=== PATIENT | female | born 1965 | race Caucasian/White ===

== ENCOUNTER 2017-01-13 00:18 | Emergency (ER) | payer OTHER ==
[2017-01-13] MEDS ORDERED: methylPREDNISolone ACET (DEPO) 80 MG/1 ML VIAL IM ONE (00:45)
[2017-01-13] MEDS ORDERED: KETOROLAC TROMETHAMINE 60 MG/2 ML VIAL IM ONE (00:45)
[2017-01-13 00:46] VITALS: BP 164/98; PULSE 87; TEMP 98.4; BMI 39.9
[2017-01-13] MEDS ORDERED: KETOROLAC TROMETHAMINE 60 MG/2 ML VIAL ONE (01:30)
--- NOTE | 2017-01-13 01:49 | PDOC ---
History of Present Illness <Enrico Sanchez - Last Filed: 01/13/17 01:44> - History of Present Illness Initial Comments: 01/13/17 01:52 Patient is a 51 year old female with significant medical hx of HTN and HLD who is presenting to the ED with shoulder pain for eight weeks. The patient complains of shoulder pain that worsens with neck rotation. She states that it has become so severe over the past several nights that it has been preventing her from sleeping. Patient denies any recent trauma, headache, numbness, tingling, weakness, lightheadedness, chest pain, palpitations, or shortness of breath. Allergies: NKDA Social History: Patient works in [employer] in [place]. She denies tobacco, ETOH and recreational drug use. PMD: Shannon Bellamy MD <Julieta Talavera - Last Filed: 01/13/17 02:00> - General Chief Complaint: Chest Pain Stated Complaint: PAIN,LEFT SHOULDER/NECK Time Seen by Provider: 01/13/17 00:38 Past History - Past Medical History Anemia: No Asthma: No Cancer: No Cardiac Disorders: No CVA: No COPD: No CHF: No Dementia: No Diabetes: No GI Disorders: No Disorders: No HTN: Yes Hypercholesterolemia: Yes Liver Disease: No Seizures: No Thyroid Disease: No - Surgical History Abdominal Surgery: No Appendectomy: No Cardiac Surgery: No Cholecystectomy: Yes Lung Surgery: No Neurologic Surgery: No Orthopedic Surgery: No - Psycho/Social/Smoking Cessation Hx Anxiety: No Suicidal Ideation: No Smoking Status: No Smoking History: Never smoked Have you smoked in the past 12 months: No Number of Cigarettes Smoked Daily: 0 Information on smoking cessation initiated: No Hx Alcohol Use: No Drug/Substance Use Hx: No Hx Substance Use Treatment: No <Enrico Sanchez - Last Filed: 01/13/17 01:44> <Julieta Talavera - Last Filed: 01/13/17 02:00> - Past Medical History Allergies/Adverse Reactions: Allergies Allergy/AdvReac Type Severity Reaction Status Date / Time No Known Drug Allergies Allergy Verified 01/13/17 00:38 Home Medications: Ambulatory Orders Propranolol HCl [Inderal -] 60 mg PO DAILY 02/29/12 Cyclobenzaprine HCl [Flexeril 10 mg] 10 mg PO TID PRN #30 tablet MDD 3 01/13/17 Ibuprofen [Motrin -] 600 mg PO TID #90 tablet 01/13/17 Review of Systems - Review of Systems Comments:: 01/13/17 01:55 GENERAL/CONSTITUTIONAL: No fever or chills. No weakness. HEAD, EYES, EARS, NOSE AND THROAT: No change in vision. No ear pain or discharge. No sore throat. CARDIOVASCULAR: No chest pain or shortness of breath. RESPIRATORY: No cough, wheezing, or hemoptysis. GASTROINTESTINAL: No nausea, vomiting, diarrhea or constipation. GENITOURINARY: No dysuria, frequency, or change in urination. MUSCULOSKELETAL: Shoulder pain. No joint or muscle swelling or pain. No back pain. SKIN: No rash NEUROLOGIC: No headache, vertigo, loss of consciousness, or change in strength/ sensation. <Julieta Talavera - Last Filed: 01/13/17 02:00> *Physical Exam - Vital Signs Last Vital Signs Temp Pulse Resp BP Pulse Ox 98.4 F 87 14 164/98 99 01/13/17 00:39 01/13/17 00:39 01/13/17 00:39 01/13/17 00:39 01/13/17 00:39 <Enrico Sanchez - Last Filed: 01/13/17 01:44> - Vital Signs Last Vital Signs Temp Pulse Resp BP Pulse Ox 98.4 F 87 14 164/98 99 01/13/17 00:39 01/13/17 00:39 01/13/17 00:39 01/13/17 00:39 01/13/17 00:39 - Physical Exam Comments: 01/13/17 01:55 GENERAL: Awake, alert, and fully oriented, in no acute distress HEAD: No signs of trauma EYES: PERRLA, EOMI, sclera anicteric, conjunctiva clear ENT: Auricles normal inspection, hearing grossly normal, nares patent, oropharynx clear without exudates. Moist mucosa NECK: Normal ROM, supple, no lymphadenopathy, JVD, or masses LUNGS: Breath sounds equal, clear to auscultation bilaterally. No wheezes, and no crackles HEART: Regular rate and rhythm, normal S1 and S2, no murmurs, rubs or gallops ABDOMEN: Soft, nontender, normoactive bowel sounds. No guarding, no rebound. No masses EXTREMITIES: Normal range of motion, no edema. No clubbing or cyanosis. No cords, erythema, or tenderness MUSCULOSKELETAL: Tenderness paraspinal muscles in the neck. NEUROLOGICAL: Weakness to C5,6, dermatome. Normal speech, normal gait SKIN: Warm, Dry, normal turgor, no rashes or lesions noted. ENDOCRINE: No increased thirst. No abnormal weight change. HEMATOLOGIC/LYMPHATIC: No anemia, easy bleeding, or history of blood clots. ALLERGIC/IMMUNOLOGIC: No hives or skin allergy. <Julieta Talavera - Last Filed: 01/13/17 02:00> Heart Score/ECG Review #1 01/13/17 01:57 Normal sinus rhythm at [address] abnormality Abnormal ECG <Julieta Talavera - Last Filed: 01/13/17 02:00> ED Treatment Course - RADIOLOGY Radiology Studies Ordered: Category Date Time Status CERVICAL SPINE CT W/O CONTR [CT] Stat CT Scan 01/13/17 00:41 Taken SHOULDER-LEFT [RAD] Stat Radiology 01/13/17 00:41 Taken - Medications Given in the ED: ED Medications Discontinued Medications Generic Name Dose Route Start Last Admin Trade Name Freq PRN Reason Stop Dose Admin Ketorolac Tromethamine 60 mg 01/13/17 00:45 01/13/17 01:38 Toradol Injection - IM 01/13/17 00:46 60 mg ONCE ONE Administration <Enrico Sanchez - Last Filed: 01/13/17 01:44> - RADIOLOGY Radiograph Interpretation: 01/13/17 02:00 Car Sweeper: ([email or web address]) Report Date: 01/13/2017 01:17:00 Report Status: Preliminary Begin of Report Content Referring Physician: Enrico Sanchez Patient Name: Lesley Hooks THIS IS A PRELIMINARY REPORT FROM IMAGING VITICULTURIST EXAM: CT cervical spine without contrast IMAGES: 576 EXAM DATE AND TIME: 2017-01-13 01:17:55.0 REASON FOR EXAM: Pain in shoulder weakness and hand COMPARISON: No FINDINGS: The cervical vertebrae are normally aligned. No fracture or destructive bone lesion. Small osteophytes C5-6. CT not sensitive for evaluation of disc herniations particularly in patients with large body habitus. However, it looks like there is a C5-6 central/right paramedian disc herniation indenting the right anterior aspect of the canal and probably impressing on the right nerve roots in this area. However, this will need confirmation with MRI. No other definite cervical disc abnormalities. THIS DOCUMENT HAS BEEN ELECTRONICALLY SIGNED Bud Johnston MD 01/13/2017 01:58 RON Bonds. Please call Imaging Mold Release Worker [phone] ([phone]) with questions. End of Report Content - Medications Given in the ED: ED Medications Discontinued Medications Generic Name Dose Route Start Last Admin Trade Name Freq PRN Reason Stop Dose Admin Ketorolac Tromethamine 60 mg 01/13/17 00:45 01/13/17 01:38 Toradol Injection - IM 01/13/17 00:46 60 mg ONCE ONE Administration Methylprednisolone Acetate 80 mg 01/13/17 00:45 01/13/17 01:49 Depo-Medrol - IM 01/13/17 00:46 80 mg ONCE ONE Administration <Julieta Talavera - Last Filed: 01/13/17 02:00> Medical Decision Making - Medical Decision Making 01/13/17 01:58 Suspect cervical radiculopathy. Will obtain x-ray of shoulder and CT of cervical spine. EKG is without evidence of ischemia and story does not fit with cardiac ischemia. Will discharge with anti-inflammatory and pain meds. Recommend to follow up with neurology. <Julieta Talavera - Last Filed: 01/13/17 02:00> *DC/Admit/Observation/Transfer - Discharge Dispostion Admit: No - Attestations Physician Attestion: 01/13/17 01:45 I, Dr. Enrico Sanchez, attest that this document has been prepared under my direction and personally reviewed by me in its entirety. I further attest, that it accurately reflects all work, treatment, procedures and medical decision -making performed by me. <Enrico Sanchez - Last Filed: 01/13/17 01:44> - Attestations Scribe Attestion: 01/13/17 01:57 Documentation prepared by Julieta Talavera, acting as medical and health services manager for Enrico Sanchez MD. <Julieta Talavera - Last Filed: 01/13/17 02:00> Diagnosis at time of Disposition: Cervical radicular pain - Discharge Dispostion Disposition: HOME Condition at time of disposition: Good - Prescriptions Prescriptions: Cyclobenzaprine HCl [Flexeril 10 mg] 10 mg PO TID PRN #30 tablet MDD 3 PRN Reason: Pain Ibuprofen [Motrin -] 600 mg PO TID #90 tablet - Referrals Referrals: Mia Ortega MD [Primary Care Provider] - Bud Duncan MD [Staff Physician] - - Patient Instructions Printed Discharge Instructions: DI for Cervical Radiculopathy Additional Instructions: Lesley Use the motrin and the flexeril three times a day. Follow up with Neurology and return to us if any problems. Best- Dr. Enrico Sanchez
--- NOTE | 2017-01-13 11:03 | EKG ---
Test Reason : Blood Pressure : / mmHG Vent. Rate : 083 BPM Atrial Rate : 083 BPM P-R Int : 184 ms QRS Dur : 076 ms QT Int : 372 ms P-R-T Axes : 063 009 001 degrees QTc Int : 437 ms NORMAL SINUS RHYTHM NONSPECIFIC ST ABNORMALITY ABNORMAL ECG WHEN COMPARED WITH ECG OF 05-OCT-2013 13:26, NO SIGNIFICANT CHANGE WAS FOUND Confirmed by CHERYL ELENA MD ([id number]) on 01/13/2017 11:02:47 AM Referred By: Confirmed By:CHERYL ELENA MD
== END 2017-01-13 02:06 | disposition home or self-care (01) ==
LOC: JER 00:18
PROC: 3E0233Z Introduction of Anti-inflammatory into Muscle, Percutaneous Approach (ICD-10-PCS; principal; 2017-01-13)
PROC: 3E023GC Introduction of Other Therapeutic Substance into Muscle, Percutaneous Approach (ICD-10-PCS; 2017-01-13)
DX: M54.12 Radiculopathy, cervical region (principal); I10 Essential (primary) hypertension; E78.00 Pure hypercholesterolemia, unspecified
CPT/HCPCS: 72125-TC; 73030-TC-LT; 93005; 93010; 99283-25

== ENCOUNTER 2017-05-29 09:24 | Emergency (ER) | payer OTHER ==
[2017-05-29 09:53] VITALS: TEMP 98; BMI 41.1
[2017-05-29] MEDS ORDERED: KETOROLAC TROMETHAMINE 30 MG/1 ML VIAL IVPUSH ONE (11:10)
[2017-05-29] MEDS ORDERED: METOCLOPRAMIDE HCL INJECTION 10 MG/2 ML VIAL IVPB ONE (11:10)
[2017-05-29] MEDS ORDERED: KETOROLAC TROMETHAMINE 30 MG/1 ML VIAL ONE (11:14)
[2017-05-29] MEDS ORDERED: METOCLOPRAMIDE HCL INJECTION 10 MG/2 ML VIAL ONE (11:14)
--- NOTE | 2017-05-29 11:19 | PDOC ---
History of Present Illness - General Chief Complaint: Nausea/Vomiting Stated Complaint: NAUSEA Time Seen by Provider: 05/29/17 10:54 History Source: Patient - History of Present Illness Timing/Duration: reports: other (this am) Severity: Yes: severe Associated Symptoms: reports: nausea/vomiting. 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) COPD: No CHF: No Dementia: No Diabetes: No GI Disorders: No Disorders: No HTN: Yes Hypercholesterolemia: Yes Liver Disease: No Seizures: No Thyroid Disease: No - Surgical History Abdominal Surgery: No Appendectomy: No Cardiac Surgery: No Cholecystectomy: Yes Lung Surgery: No Neurologic Surgery: No Orthopedic Surgery: No - Immunization History Immunization Up to Date: Yes - Suicide/Smoking/Psychosocial Hx Smoking Status: No Smoking History: Never smoked Have you smoked in the past 12 months: No Number of Cigarettes Smoked Daily: 0 Hx Alcohol Use: No Drug/Substance Use Hx: No Hx Substance Use Treatment: No Review of Systems - Review of Systems Constitutional: No: Chills, Fever HEENTM: No: Blurred Vision Respiratory: No: Shortness of Breath Cardiac (ROS): No: Chest Pain, Lightheadedness ABD/GI: Yes: Nausea, Vomiting Neurological: Yes: Headache. No: Weakness *Physical Exam - Vital Signs Last Vital Signs Temp Pulse Resp BP Pulse Ox 98.0 F 75 20 130/80 99 05/29/17 09:35 05/29/17 09:35 05/29/17 09:35 05/29/17 09:35 05/29/17 09:35 - Physical Exam General Appearance: Yes: Appropriately Dressed. No: Apparent Distress HEENT: positive: EOMI, PARRISH, Normal Voice, Other (non tender over mandaen). negative: Scleral Icterus (R), Scleral Icterus (L) Neck: positive: Supple Respiratory/Chest: negative: Respiratory Distress Integumentary: positive: Dry, Warm Neurologic: positive: Fully Oriented, Alert, Normal Mood/Affect, Motor Strength 5/5, Finger to Nose. negative: Facial Droop, Sensory Deficit, Disoriented (no atxia or drift) ED Treatment Course - LABORATORY CBC & Chemistry Diagram: 05/29/17 11:50 05/29/17 11:50 - RADIOLOGY Radiology Studies Ordered: Category Date Time Status HEAD CT WITHOUT CONTRAST [CT] Stat CT Scan 05/29/17 11:10 Ordered Medical Decision Making - Medical Decision Making 05/29/17 11:14 51 yo F, h/o HTN, CVA w/ no residual deficits, here with headache with nausea, vomiting. Patient states she woke up in her usual state of health this a.m, had breakfast and went to work. While at work developed sudden onset nausea, vomiting w/ sharp headache to left side of head that is constant and 10 out of 10. States she does not usually get headaches. Denies nausea, visual changes, slurred speech, focal weakness, chest pain or shortness of breath. See exam ALONSO w/ n/v this am No red flags at this time, no focal deficits or s/o infxn M/l non-emergent source of ALONSO -pain control -labs including ESR though very low suspicion for temporal arthritis -CT 05/29/17 11:15 05/29/17 11:17 05/29/17 13:[address] head negative. Pt improved w/ meds. Stable for discharge w/ PMD f/u 05/29/17 13:39 *DC/Admit/Observation/Transfer Diagnosis at time of Disposition: Headache Qualifiers: Headache type: unspecified Headache chronicity pattern: acute headache Intractability: not intractable Qualified Code(s): R51 - Headache - Discharge Dispostion Disposition: HOME Condition at time of disposition: Improved - Referrals Referrals: Mia Ortega MD [Primary Care Provider] - - Patient Instructions Printed Discharge Instructions: DI for Headache Additional Instructions: The cause of your symptoms are unclear at this time as labs and CT head were negative. Take Motrin as needed for headache and follow-up with your primary care physician as needed - Post Discharge Activity Forms/Work/School Notes: Back to Work
[2017-05-29 12:00] LABS: BASOPHIL 1.2 % (0-2.0); EOSINOPHIL 3.1 % (0-4.5); MCH 26.7 pg (25.7-33.7); MCHC 32.8 g/dl (32.0-36.0); MEAN CELL VOLUME 81.4 fl (80-96); MEAN PLT VOLUME 9.1 fl (7.5-11.1); NEUTROPHILS 59.6 % (42.8-82.8); PLATELET COUNT 359 K/MM3 (134-434); WHITE BLOOD COUNT 6.4 K/mm3 (4.0-10.0)
[2017-05-29 12:26] LABS: ALBUMIN 3.6 g/dl (3.4-5.0); ANION GAP 6 (8-16); CALCIUM 8.5 mg/dL (8.5-10.1); CO2 28 mmol/L (21-32); GLUCOSE,RANDOM 89 mg/dL (74-106)
[2017-05-29 12:26] LABS: URINE APPEARANCE SLCLOUDY; URINE BILIRUBIN NEGATIVE (NEGATIVE); URINE BLOOD 1+ (NEGATIVE); URINE COLOR YELLOW; URINE GLUCOSE (UA) NEGATIVE (NEGATIVE); URINE KETONE NEGATIVE (NEGATIVE); URINE LEUK ESTERASE NEGATIVE (NEGATIVE); URINE NITRITE NEGATIVE (NEGATIVE); URINE PROTEIN NEGATIVE (NEGATIVE); URINE UROBILINOGEN NEGATIVE mg/dL (0.2-1.0)
[2017-05-29 12:30] LABS: ALK PHOS 109 U/L (45-117); BILIRUBIN,TOTAL 0.4 mg/dL (0.2-1.0); CREATININE 0.5 mg/dL (0.55-1.02); SGOT/AST 20 U/L (15-37); SGPT/ALT 27 U/L (12-78); TOT PROT 7.6 g/dl (6.4-8.2)
[2017-05-29 12:32] LABS: URINE BACTERIA RARE /hpf (NONE SEEN); URINE MUCUS RARE; URINE RBC 1 /hpf (0-3); URINE WBC 1 /hpf (3-5)
[2017-05-29 13:57] VITALS: BP 115/59; PULSE 64
--- NOTE | 2017-05-30 14:36 | EKG ---
Test Reason : Blood Pressure : / mmHG Vent. Rate : 059 BPM Atrial Rate : 059 BPM P-R Int : 200 ms QRS Dur : 082 ms QT Int : 442 ms P-R-T Axes : 054 025 038 degrees QTc Int : 437 ms SINUS BRADYCARDIA SLOW R WAVE PROGRESSION IN V1-V3 WHEN COMPARED WITH ECG OF 13-JAN-2017 00:42, NO SIGNIFICANT CHANGE WAS FOUND REPEAT EKG IF CLINICALLY INDICATED Confirmed by JOHN POLANCO MD ([id number]) on 05/30/2017 2:35:47 PM Referred By: Confirmed By:JOHN POLANCO MD
== END 2017-05-29 13:57 | disposition home or self-care (01) ==
LOC: JER 09:24
PROC: 3E0333Z Introduction of Anti-inflammatory into Peripheral Vein, Percutaneous Approach (ICD-10-PCS; principal; 2017-05-29)
PROC: 3E033GC Introduction of Other Therapeutic Substance into Peripheral Vein, Percutaneous Approach (ICD-10-PCS; 2017-05-29)
DX: R51 Headache (principal); I10 Essential (primary) hypertension; E78.00 Pure hypercholesterolemia, unspecified; Z86.73 Personal history of transient ischemic attack (TIA), and cerebral infarction without residual deficits
CPT/HCPCS: 36415; 70450-TC; 80053; 81003; 81015; 85025; 85651; 93005; 93010; 99283-25

== ENCOUNTER 2017-09-05 06:27 | Inpatient (IN) | payer OTHER ==
[2017-08-30 12:48] VITALS: BMI 43.9
[~2017-09-05 06:27] MED LIST: BUPIVACAINE HCL/PF 0.5% (5MG/ML) 10 ML VIAL IJ ONE
--- NOTE | 2017-09-05 07:27 | HP ---
History & Physical Update - History History: No Change - Physical Physical: No Change - Assessment Assessment: No Change - Plan Plan: No Change <Ashanti Okeefe - Last Filed: 09/05/17 07:27> - Plan Currently as noted:: Robotic vertical sleeve gastrectomy for morbid obesity <Kobe Lebron - Last Filed: 09/05/17 08:11>
[2017-09-05] MEDS ORDERED: BUPIVACAINE HCL/PF 0.5% (5MG/ML) 10 ML VIAL ONE (07:37)
[2017-09-05] MEDS ORDERED: DESFLURANE GAS 240 ML BOTTLE IH ONE (07:56)
[2017-09-05] MEDS ORDERED: SCOPOLAMINE HYDROBROMIDE 1 PATCH PATCH.TD72 ONE (07:56)
[2017-09-05] MEDS ORDERED: ceFAZolin SODIUM 1 GM VIAL ONE (08:01)
[2017-09-05] MEDS ORDERED: LIDOCAINE HCL/PF 2% SDV 5ML VIAL ONE (08:01)
[2017-09-05] MEDS ORDERED: ROCURONIUM BROMIDE 50 MG/5 ML VIAL ONE ×2 (08:02→08:44)
[2017-09-05] MEDS ORDERED: PROPOFOL 20 ML ONE ×3 (08:02→08:33)
[2017-09-05] MEDS ORDERED: fentaNYL CITRATE 250 MCG/5 ML VIAL ONE (08:02)
[2017-09-05] MEDS ORDERED: MIDAZOLAM HCL 2 MG/2 ML SINGLE DOSE VIAL ONE (08:02)
[2017-09-05] MEDS ORDERED: ceFAZolin SODIUM 1 GM VIAL IVPB ONE (08:20)
[2017-09-05] MEDS ORDERED: DEXAMETHASONE SOD PHOSPHATE 4 MG/1 ML VIAL ONE (08:33)
--- NOTE | 2017-09-05 10:28 | OP ---
Operative Note - Note: Operative Date: 09/05/17 Pre-Operative Diagnosis: Morbid obesity Operation: Robotic vertical sleeve gastrectomy, wedge liver biopsy, EGD Post-Operative Diagnosis: Other (Morbid obesity, hepatomegaly) Surgeon: Kobe Lebron Community Manager: Ashanti Okeefe Anesthesia: General Specimens Removed: Greater curvature of stomach, wedge lobe liver biopsy Estimated Blood Loss (mls): 30 Drains & Tubes with Location: 36 Fr Bougie Operative Report Dictated: Yes
[2017-09-05] MEDS ORDERED: HYDROmorphone HCL CARPU-JECT 1 MG/1 ML DISP.SYRIN IVPB PRN (10:29)
[2017-09-05] MEDS ORDERED: METOCLOPRAMIDE HCL INJECTION 10 MG/2 ML VIAL IVPUSH SCH (10:30)
[2017-09-05] MEDS ORDERED: BUPIVACAINE HCL/PF 0.5% (5MG/ML) 10 ML VIAL IJ ONE (10:35)
--- NOTE | 2017-09-05 10:59 | SPEC ---
DATE OF OPERATION: 09/05/2017 SURGEON: Catherine Lebron MD DRAFTER STRUCTURAL: Ashanti Okeefe PREOPERATIVE DIAGNOSIS: Morbid obesity, body mass index 43.9. POSTOPERATIVE DIAGNOSES: Morbid obesity, hepatomegaly, body mass index 43.9. PROCEDURES: Robotic vertical sleeve gastrectomy, robotic wedge liver biopsy of the left lobe of the liver, and esophagogastroduodenoscopy. SPECIMEN: Greater curvature of the stomach and wedge biopsy of the left lobe of the liver. ESTIMATED BLOOD LOSS: 30 mL. DRAINS: None. ANESTHESIA: GET. 36-Ind[place]ian bougie. REASON FOR PROCEDURE: This 52-year-old female presents to the office for weight loss options. After describing different options, she decided to proceed with a robotic vertical sleeve gastrectomy, possible open, possible liver biopsy, possible EGD. The risks and benefits of the procedure were explained. RISKS AND BENEFITS: After describing the different options for management of weight loss, the patient decided to proceed with a robotic laparoscopic, possible open vertical sleeve gastrectomy. The patient was seen by the respective subspecialities and cleared for surgery. The risks and benefits of the procedure were explained. These included bleeding, infection, hernia, VA, DVT, PE, injury to surrounding structures including the liver, colon, bowel, spleen, esophagus, vessel injury, nerve injury, weight regain, gastric leak, staple line leak, sleeve leak, obstruction, vitamin deficiency, hair loss, and as some of the possible complications. The patient understood and signed informed consent. DESCRIPTION OF PROCEDURE: The patient was placed supine on the operating room table. The patient underwent general endotracheal intubation. A Cardona catheter was inserted by the nursing staff. The arms were brought out at 90 degrees and secured. A foot board was placed and the legs were secured laterally with padding. The abdomen was prepped and draped in the usual sterile fashion. A time-out was performed. An incision was made superior and to the left of the umbilicus. A Veress needle was inserted. Pneumoperitoneum was established. Subsequently the Veress needle was removed. An 8-mm robotic trocar was placed under direct visualization with the laparoscope. Inspection of the abdominal cavity was performed. An 8-mm trocar was then placed in the left abdominal wall approximately 6 to 7 cm to the left of the initial trocar. An 8-mm robotic trocar was then placed in the left abdominal wall approximately 6 to 7 cm to the left of the initial trocar. A 12-mm robotic trocar was then placed in the right abdominal wall approximately 6 to 7 cm to the right of the initial trocar and an 8-mm robotic trocar placed approximately 6 to 7 cm lateral to the 12-mm trocar. A stab wound was made in the subxiphoid area and a Nona clamp inserted and removed to dilate the tract. A Beatriz liver retractor was inserted. The post was secured at the bedside by the nursing staff. The patient was placed in steep reverse Trendelenburg position and the Beatriz liver retractor was used to secure the liver towards the anterior abdominal wall. The robot was brought over the field and docked. Dissection was performed at the console. The pylorus was identified and 6 cm proximal to it the lesser sac was entered using the vessel sealer. From this point cephalad all lateral attachments to the greater curvature of the stomach including the short gastric vessels were ligated using the vessel sealer towards the gastrosplenic and gastrophrenic ligaments. Once this was done in its entirety, all tubes within the nasal or oropharyngeal cavity including a temperature probe was confirmed to be removed by Anesthesia. The bougie was then inserted by Anesthesia. Transection of the stomach was then begun staying adjacent to the bougie, but away from the angularis. Transection of the stomach was performed near the portion of the stomach where the lesser sac was entered. Two robotic green robert were used at this location. Robotic blue robert were then used for the remainder of the transection until the greater curvature of the stomach was fully transected. Again, this was done staying close to the bougie. Care was taken to stay away from the angle of His cephalad. The staple line was then inspected. Hemostasis was identified. A leak test was then performed. The stomach was clamped distally to the staple line. Irrigation solution was placed in the left upper quadrant and air insufflated by Anesthesia into the sleeve. No leaks were identified and no obstruction was identified. This was done throughout the staple line. At this point, the irrigation solution was suctioned and again hemostasis noted. A wedge liver biopsy was then performed. A portion of the left lobe of the liver was identified and an edge of it grasped. Using electrocautery, a wedge of this portion of the liver was excised. The specimen was removed from the abdominal cavity and sent off the field. Hemostasis of the biopsy site as attained using electrocautery. The robotic instruments were then removed. The robot was undocked from the operative field. The 12-mm robotic trocar was removed and the greater curvature specimen removed from this site using a sponge stick abbasi. The specimen was inspected and the Veress needle inserted. The specimen insufflated adequately, and no leak was identified. The staple line was noted to be straight and intact. A Tyler-Donna device was then used to close the fascia with a 0 Vicryl suture at this site. The liver retractor was removed under direct visualization. Pneumoperitoneum was desufflated and the fascial suture was secured. Hemostasis was noted at all incision sites and Marcaine was injected at all incision sites. All incision sites were closed using 4-0 Biosyn. Sterile dressings were applied. In addition, an upper endoscopy was performed to further evaluate for leak/obstruction. The endoscope was inserted in the patient's mouth. Esophagus, GE junction, gastric patch, staple line was inspected. Hemostasis was noted. No leak or obstruction was noted. The endoscope was used to suction the stomach, and the endoscope was removed in its entirety. The patient tolerated the procedure well and was transferred to the recovery room in stable condition with a Cardona catheter intact. The patient was transferred to telemetry for further monitoring. CATHERINE LEBRON M.D. [id number]
[2017-09-05] MEDS: ACETAMINOPHEN 1000 MG/100 ML VIAL (NON FORMULARY) IVPB SCH ×3 (11:00→22:25)
[2017-09-05] MEDS ORDERED: METOCLOPRAMIDE HCL INJECTION 10 MG/2 ML VIAL ONE (11:22)
[2017-09-05] MEDS ORDERED: FAMOTIDINE 20 MG/50 ML IVPB 20 MG/50 ML MG IVPB ONE ×2 (11:23→12:00)
[2017-09-05] MEDS ORDERED: HYDROmorphone HCL CARPU-JECT 2 MG/1 ML DISP.SYRIN ONE (11:33)
[2017-09-05] MEDS: HYDROmorphone HCL CARPU-JECT 2 MG/1 ML DISP.SYRIN IVPUSH PRN ×4 (11:35→14:55)
[2017-09-05 11:36] LABS: HEMATOCRIT 34.5 % (32.4-45.2); HEMOGLOBIN 10.9 GM/dL (10.7-15.3); MCH 26.2 pg (25.7-33.7); MCHC 31.7 g/dl (32.0-36.0); MEAN CELL VOLUME 82.5 fl (80-96); PLATELET COUNT 333 K/MM3 (134-434); RBC 4.18 M/mm3 (3.60-5.2); WHITE BLOOD COUNT 14.1 K/mm3 (4.0-10.0)
[2017-09-05 11:59] LABS: ALBUMIN 3.2 g/dl (3.4-5.0); ALK PHOS 99 U/L (45-117); ANION GAP 8 (8-16); BILIRUBIN,TOTAL 0.6 mg/dL (0.2-1.0); BLOOD UREA NITROGEN 13 mg/dL (7-18); CALCIUM 8.2 mg/dL (8.5-10.1); CHLORIDE 105 mmol/L (98-107); CO2 25 mmol/L (21-32); CREATININE 0.7 mg/dL (0.55-1.02); GLUCOSE,RANDOM 147 mg/dL (74-106); POTASSIUM 5.1 mmol/L (3.5-5.1); SGOT/AST 85 U/L (15-37); SGPT/ALT 73 U/L (12-78); SODIUM 138 mmol/L (136-145); TOT PROT 6.9 g/dl (6.4-8.2)
[2017-09-05] MEDS: ONDANSETRON 4 MG/2 ML VIAL IVPUSH SCH ×3 (12:45→22:25)
--- NOTE | 2017-09-05 14:12 | SURG ---
Surgery Associate Loan Officer Note Associate Loan Officer: Ashanti Okeefe PA-C Date of Service: 09/05/17 Diagnosis: morbid obesity Procedure: robotic assisted gastric sleeve liver biopsy upper endoscopy I was present for the entirety of the operative procedure. For further detail, please refer to operative report. Visit type - Case Type Case Type: Scheduled Admission - Emergency Emergency Visit: No - New patient This patient is new to me today: Yes Date on this admission: 09/05/17
[2017-09-05] MEDS ORDERED: ONDANSETRON 4 MG/2 ML VIAL ONE (15:58)
[2017-09-05] MEDS ORDERED: ACETAMINOPHEN INJECTION 100 ML IVPB ONE (16:18)
[2017-09-05] MEDS ORDERED: FAMOTIDINE 20 MG/50 ML IVPB 50 ML IVPB SCH (22:00)
[2017-09-05] MEDS ORDERED: PT OWN MED DRAWER 7, Y5N ONE (22:21)
[2017-09-05] MEDS: METOCLOPRAMIDE HCL INJECTION 10 MG/2 ML VIAL IVPUSH SCH (22:25)
[2017-09-05] MEDS: SODIUM CHLORIDE 1,000 ML IV SCH (22:26)
[2017-09-05] MEDS: ENOXAPARIN NA (PORCINE) 40 MG/0.4 ML DISP.SYRIN SQ SCH (22:38)
[2017-09-06] MEDS: FAMOTIDINE IV 20 MG/12 ML VIAL IVPUSH SCH ×3 (00:25→21:58)
[2017-09-06] MEDS: ONDANSETRON 4 MG/2 ML VIAL IVPUSH SCH ×6 (03:00→21:57)
[2017-09-06] MEDS: METOCLOPRAMIDE HCL INJECTION 10 MG/2 ML VIAL IVPUSH SCH ×4 (03:00→20:23)
[2017-09-06] MEDS: ACETAMINOPHEN 1000 MG/100 ML VIAL (NON FORMULARY) IVPB SCH (04:00)
[2017-09-06 06:18] LABS: HEMATOCRIT 32.2 % (32.4-45.2); HEMOGLOBIN 10.5 GM/dL (10.7-15.3); MCH 26.5 pg (25.7-33.7); MCHC 32.6 g/dl (32.0-36.0); MEAN CELL VOLUME 81.2 fl (80-96); MEAN PLT VOLUME 8.8 fl (7.5-11.1); PLATELET COUNT 320 K/MM3 (134-434); RBC 3.97 M/mm3 (3.60-5.2); RDW 14.8 % (11.6-15.6); WHITE BLOOD COUNT 10.1 K/mm3 (4.0-10.0)
[2017-09-06 07:28] LABS: CALCIUM 7.7 mg/dL (8.5-10.1); CHLORIDE 102 mmol/L (98-107); POTASSIUM 4.2 mmol/L (3.5-5.1); SODIUM 136 mmol/L (136-145)
[2017-09-06 07:34] LABS: ALBUMIN 3.1 g/dl (3.4-5.0); ALK PHOS 99 U/L (45-117); ANION GAP 6 (8-16); BLOOD UREA NITROGEN 10 mg/dL (7-18); CO2 28 mmol/L (21-32); CREATININE 0.5 mg/dL (0.55-1.02); GLUCOSE,RANDOM 114 mg/dL (74-106); SGOT/AST 207 U/L (15-37); SGPT/ALT 182 U/L (12-78); TOT PROT 6.9 g/dl (6.4-8.2)
[2017-09-06] MEDS ORDERED: PT OWN MED DRAWER 7, Y5N ONE ×2 (09:00→19:45)
[2017-09-06] MEDS: ENOXAPARIN NA (PORCINE) 40 MG/0.4 ML DISP.SYRIN SQ SCH ×2 (09:26→21:58)
--- NOTE | 2017-09-06 10:51 | PN ---
Progress Note (short form) - Note Progress Note: POD #1 Alert. C/o incisional tenderness. Pain controlled well via PRN meds. Deneis n/v/f/c, CP, SOB, [place] or palpitations. AVSS. Afebrile. UGI /18: no leak/extravasation Gen: alert. nad Abd: obese body habitus. All surgical port c/d/i. No hematoma. LE: SCD bilat. NT <Eric Oliveira - Last Filed: 09/06/17 10:49> - Note Progress Note: Agree POD 1 No nausea Pain controlled Vital Signs Period Temp Pulse Resp BP Sys/[place] Pulse Ox Last 24 Hr 97.8 F-99.3 F 72-93 14-26 139-167/84-107 93-98 Abd soft CBC, BMP 18 06:05 09/06/17 06:05 UGI- no leak/obstruction Clears Ambulation <Kobe Lebron - Last Filed: 09/06/17 14:47> Problem List - Problems (1) Morbid obesity due to excess calories Assessment/Plan: POD #1 s/p Robotic sleeve gastrectomy Start bariatric stage 1 diet. Cont oob and ambulate dc planning Code(s): E66.01 - MORBID (SEVERE) OBESITY DUE TO EXCESS CALORIES <Eric Oliveira P - Last Filed: 09/06/17 10:49>
[2017-09-06] MEDS: SODIUM CHLORIDE 1,000 ML IV SCH (12:22)
--- NOTE | 2017-09-06 12:40 | PN ---
Progress Note (short form) - Note Progress Note: Anesthesiology Post-op POD#1 s/p Robotic Gastric Sleeve resection under GA. Pt. awake and alert, sitting up, tolerating clears. She c/o some pain but this is managed with current medications. VSS.
--- NOTE | 2017-09-06 13:00 | PATH ---
Surgical Pathology Report Patient Name: SIMON CORNELIUS Med. Rec. #: [id number] /Age/Gender: 1965 (Age: 52) / F Account: [id number] Location: 4 W TELEMETRY U Taken: 09/05/2017 Received: 09/05/2017 Reported: 09/06/2017 Physicians: Kobe Lebron M.D. Specimen(s) Received A: GREATER CURVATURE STOMACH B: LIVER BIOPSY Clinical History Morbid severe obesity due to excess calories Final Diagnosis A. STOMACH, GREATER CURVATURE, ROBOTIC ASSISTED VERTICAL SLEEVE GASTRECTOMY: PORTION OF STOMACH WITH MODERATE CHRONIC GASTRITIS. IMMUNOHISTOCHEMICAL STAIN FOR H. PYLORI IS NEGATIVE. B. LIVER, BIOPSY: LIVER PARENCHYMA WITH PATCHY STEATOSIS (10%). NO INCREASE IN IRON AND FIBROSIS ON PERFORMED SPECIAL STAINS (IRON AND TRICHROME). Comment: Part B, Subcapsular biopsy with thermal artifact. Electronically Signed Yovana Montoya M.D. Gross Description A. Received in formalin, labeled "greater curvature of stomach," is a 148 gram, 21.0 x 4.0 x 2.8 cm. portion of stomach with a stapled margin of resection. The serosa is kendrick-gallagher with minimal attached fat. The mucosa is kendrick-pink with normal folds. No mucosal masses are identified. Pharmacist Manager sections are submitted in one cassette. B. Received in formalin labeled "liver biopsy," is a 2.0 x 1.8 x 0.3 cm aggregate of kendrick, fragmented liver tissue. The specimen is submitted in toto in one cassette. [id number]
[2017-09-06] MEDS ORDERED: oxyCODONE HCL 5 MG TABLET PO PRN (14:45)
[2017-09-06] MEDS ORDERED: SODIUM CHLORIDE 1,000 ML IV SCH (14:45)
[2017-09-06] MEDS ORDERED: ACETAMINOPHEN 325 MG TABLET (FP) PO PRN (14:45)
[2017-09-06] MEDS ORDERED: PROPRANOLOL HCL 40 MG TABLET PO ONE (18:45)
[2017-09-07] MEDS: ENOXAPARIN NA (PORCINE) 40 MG/0.4 ML DISP.SYRIN SQ SCH (09:06)
[2017-09-07] MEDS: FAMOTIDINE IV 20 MG/12 ML VIAL IVPUSH SCH (09:06)
[2017-09-07 11:24] VITALS: BP 153/96; PULSE 80; TEMP 97.8
== END 2017-09-07 10:22 | disposition home or self-care (01) | DRG 621 ==
LOC: JSAMEDAYSX 06:27 → EDSTATUS 08:00 → J4W 17:26
PROVIDERS: ADMIT Surgery; ATTEND Surgery
PROC: 8E0W4CZ Robotic Assisted Procedure of Trunk Region, Percutaneous Endoscopic Approach (ICD-10-PCS; 2017-09-05)
PROC: 0DB64Z3 Excision of Stomach, Percutaneous Endoscopic Approach, Vertical (ICD-10-PCS; principal; 2017-09-05 08:00)
PROC: 0FB04ZX Excision of Liver, Percutaneous Endoscopic Approach, Diagnostic (ICD-10-PCS; 2017-09-05 08:00)
PROC: 0DB68ZX Excision of Stomach, Via Natural or Artificial Opening Endoscopic, Diagnostic (ICD-10-PCS; 2017-09-05 08:00)
DX: E66.01 Morbid (severe) obesity due to excess calories (principal); K76.0 Fatty (change of) liver, not elsewhere classified; Z68.41 Body mass index [BMI] 40.0-44.9, adult; K29.50 Unspecified chronic gastritis without bleeding
CPT/HCPCS: 36415; 74241-TC; 80053; 84703; 85027; 86850; 86900; 86901; 88307-TC; 94010; 94760

== ENCOUNTER 2018-10-19 09:16 | Emergency (ER) | payer OTHER ==
[2018-10-19 09:23] VITALS: BMI 28.3
[2018-10-19 10:13] VITALS: BP 112/82; PULSE 76; TEMP 99.7
--- NOTE | 2018-10-19 10:36 | PDOC ---
Attending Attestation - HPI HPI: 10/19/18 12:21 The patient is a 53 year old female, with a significant PMH of morbid obesity, who presents to the emergency department with nausea with emesis (non bloody, non bilious), diarrhea (non bloody) and abdominal pain beginning at 4 am this morning. The patient states she was awakened this morning with 2 episodes of non bloody, non bilious emesis and subsequently 5 episodes of diarrhea (non bloody). The patient states she then experienced intermittent lower abdominal pain described as a cramping sensation. The patient reports she had a vertical sleeve gastrectomy performed by Dr Lebron in September. The patient denies any recent sick contacts. The patient states she eats 6 small meals a day s/p procedure. The patient denies chest pain, shortness of breath, headache and dizziness. Denies fever, chills and constipation. Denies dysuria, frequency, urgency and hematuria. Allergies: NKDA Past surgical history: vertical sleeve gastrectomy (2018) Social history: No reported PCP: Dr. Montes Documentation prepared by Pj Ronquillo, acting as internist medical doctor md for Mookie Mendosa MD. - Physicial Exam PE: 10/19/18 12:53 Vitals: Triage vital signs reviewed General Appearance: No acute distress, well nourished, well developed Neck: Supple; No nuchal rigidity Chest Wall: Nontender Cardiac: Regular rate and rhythm, no murmurs, no rubs, no gallops Lungs: Clear to auscultation bilateral, good air movement bilaterally Abdomen: (+) Mild left lower quadrant tenderness to palpation. No rebound or guarding. Soft, nondistended, normal bowel sounds. Rectal: Exam deferred Extremities: Full range of motion to all extremities, no cyanosis, clubbing, or edema Skin: Warm and dry, no rashes or lesions, no rash, no petechiae Psych: Normal mood, normal affect <Pj Ronquillo - Last Filed: 10/19/18 12:53> - Resident Resident Name: Chavez Mars - ED Attending Attestation I have performed the following: I have examined & evaluated the patient, The case was reviewed & discussed with the resident, I agree w/resident's findings & plan, Exceptions are as noted - Medical Decision Making 10/19/18 16:30 53 years old with past medical history significant for morbid obesity presents to the ED with nausea vomiting and diarrhea Initially with very mild left lower quadrant pain on examination however status post fluids and antiemetics patient has resolved patient feels better is now tolerating fluids by mouth No significant lab abnormalities Patient slightly anemic compared to baseline she was made aware of this will follow up with her doctor She will be discharged home on Zofran history examination consistent viral gastroenteritis She will return to the emergency department immediately for any returning abdominal pain if she feels worse or for any concerns. Findings, need follow-up and strict return instructions discussed patient. <Mookie Mendosa - Last Filed: 10/19/18 16:32>
--- NOTE | 2018-10-19 10:39 | PDOC ---
History of Present Illness - General History Source: Patient, Old Records Exam Limitations: No Limitations - History of Present Illness Initial Comments: HPI: 53 y/o female presenting to [facility] ER complaining of nausea/vomiting, diarrhea, and abdominal pain since approx. 4am this morning. Pt woke from sleep with vomiting x2 episodes, which are described as nonbloody and nonbilious. Diarrhea x5 episodes, described as loose stool without blood. Pt subsequently developed intermittent lower abdominal cramping. She is s/p robotic vertical sleeve gastrectomy in [place] [address] Lebron. Pt reports uncomplicated post-op course. Now eats six small meals a day. 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 Reports feeling episodes of weakness yesterday. PCP: Dr. 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) COPD: No CHF: No Dementia: No Diabetes: No GI Disorders: No Disorders: No HTN: Yes Hypercholesterolemia: Yes Liver Disease: No Seizures: No Thyroid Disease: No - Surgical History Abdominal Surgery: Yes (gastric sleeve 09/21) Appendectomy: No Cardiac Surgery: No Cholecystectomy: Yes Lung Surgery: No Neurologic Surgery: No Orthopedic Surgery: Yes (RT KNEE ARTHROSCOPY) - Immunization History Immunization Up to Date: Yes - Suicide/Smoking/Psychosocial Hx Smoking Status: No Smoking History: Never smoked Have you smoked in the past 12 months: No Number of Cigarettes Smoked Daily: 0 Information on smoking cessation initiated: No Hx Alcohol Use: No Drug/Substance Use Hx: No Substance Use Type: None Hx Substance Use Treatment: No <Chavez Mars - Last Filed: 10/19/18 12:01> <Mookie Mendosa - Last Filed: 10/19/18 13:31> - Past Medical History Allergies/Adverse Reactions: Allergies Allergy/AdvReac Type Severity Reaction Status Date / Time No Known Drug Allergies Allergy Verified 10/19/18 09:18 Home Medications: Ambulatory Orders Ondansetron [Zofran Odt -] 4 mg SL TID #21 od.tablet 10/19/18 Review of Systems - Review of Systems Able to Perform ROS?: Yes Comments:: In addition to that documented in the HPI above, the additional ROS was obtained : Constitutional: Denies fevers or chills Head: Endorses generalized headache. Denies vision changes ENMT: Denies sore throat CV: Denies chest pain Resp: Denies SOB GI: Per HPI : Denies painful urination, hematuria, increased urinary frequency, or vaginal discharge MSK: Denies recent trauma Skin: Denies new rashes Neuro: Denies new numbness or tingling or weakness Endocrine: Denies polyuria Heme: Denies bleeding or bruising <Chavez Mars - Last Filed: 10/19/18 12:01> *Physical Exam - Vital Signs Last Vital Signs Temp Pulse Resp BP Pulse Ox 99.7 F H 76 18 112/82 99 10/19/18 10:12 10/19/18 10:12 10/19/18 10:12 10/19/18 10:12 10/19/18 10:14 - Physical Exam Comments: Constitutional: Well-developed, well-nourished female in no acute distress or obvious discomfort. Found semi-fowlers in hospital bed. Alert and oriented x4. Answered all questions appropriately and completely. Speech was non-labored, non -pressured. Head: Normocephalic. No obvious external signs of trauma. Eyes: Sclerae white. Conjunctiva moist and not injected. Ears: Hearing grossly intact. Nose: No nasal discharge. Throat: Oral cavity and pharynx normal. No inflammation, swelling, exudate, or lesions. Neck: Supple, trachea is midline. Cardiovascular / Chest: Regular rate and regular rhythm. No murmur, rubs, clicks, or gallops. Peripheral pulses: radial pulses full. Respiratory: Breathing unlabored. Equal chest rise and fall. Clear to auscultation bilaterally. No stridor, no wheezing, no rhonchi. Gastrointestinal: abdomen is mildly tender in LLQ with grimace but no rebound or guarding. Globally, abdomen is soft and nondistended. No pulsatile masses. No overlying skin lesions or obvious signs of trauma. Neuro: Alert and oriented. Moving all four extremities spontaneously. Skin: Warm, dry, and intact. No bruising, rashes, or other lesions. : No R or L CVA tenderness. Psych: Affect: appropriate. Mood: normal. <Chavez Mars - Last Filed: 10/19/18 12:01> - Vital Signs Last Vital Signs Temp Pulse Resp BP Pulse Ox 99.7 F H 76 18 112/82 99 10/19/18 10:12 10/19/18 10:12 10/19/18 10:12 10/19/18 10:12 10/19/18 10:14 <Mookie Mendosa - Last Filed: 10/19/18 13:31> Moderate Sedation - Procedure Monitoring Vital Signs: Procedure Monitoring Vital Signs Temperature 99.7 F H 10/19/18 10:12 Pulse Rate 76 10/19/18 10:12 Respiratory Rate 18 10/19/18 10:12 Blood Pressure 112/82 10/19/18 10:12 O2 Sat by Pulse Oximetry (%) 99 10/19/18 10:14 <Chavez Mars - Last Filed: 10/19/18 12:01> - Procedure Monitoring Vital Signs: Procedure Monitoring Vital Signs Temperature 99.7 F H 10/19/18 10:12 Pulse Rate 76 10/19/18 10:12 Respiratory Rate 18 10/19/18 10:12 Blood Pressure 112/82 10/19/18 10:12 O2 Sat by Pulse Oximetry (%) 99 10/19/18 10:14 <Mookie Mendosa - Last Filed: 10/19/18 13:31> ED Treatment Course - LABORATORY CBC & Chemistry Diagram: 10/19/18 11:20 10/19/18 11:20 <Chavez Mars - Last Filed: 10/19/18 12:01> - LABORATORY CBC & Chemistry Diagram: 10/19/18 11:20 10/19/18 11:20 - ADDITIONAL ORDERS Additional order review: Laboratory Results 10/19/18 10/19/18 10/19/18 11:26 11:26 11:20 Sodium 137 Potassium 4.1 Chloride 108 H Carbon Dioxide 23 Anion Gap 7 L BUN 18 Creatinine 0.4 L Creat Clearance w eGFR > 60 Random Glucose 94 Calcium 8.1 L Total Bilirubin 0.9 AST 15 ALT 18 Alkaline Phosphatase 112 Total Protein 6.8 Albumin 3.3 L Urine Color Yellow Urine Appearance Slcloudy Urine pH 5.0 Ur Specific [place] 1.027 Urine Protein Negative Urine Glucose (UA) Negative Urine Ketones Negative Urine Blood 1+ H Urine Nitrite Positive Urine Bilirubin Negative Urine Urobilinogen Negative Ur Leukocyte Esterase Negative Urine WBC (Auto) 2 Urine RBC (Auto) 3 Ur Epithelial Cells Rare Urine Bacteria Many Urine Mucus Few Urine Yeast Trace Urine HCG, Qual Negative 10/19/18 11:20 RBC 3.58 L MCV 75.4 L MCHC 32.7 RDW 13.9 MPV 8.7 Neutrophils % 88.9 H D Lymphocytes % 6.7 L D Monocytes % 3.7 L Eosinophils % 0.2 D Basophils % 0.5 - Medications Given in the ED: ED Medications Discontinued Medications Generic Name Dose Route Start Last Admin Trade Name Delta PRN Reason Stop Dose Admin Acetaminophen 1,000 mg 10/19/18 10:44 10/19/18 11:37 Ofirmev Injection - IVPB 10/19/18 10:45 1,000 mg ONCE ONE Administration Lactated Ringer's 1,000 ml 10/19/18 10:42 10/19/18 11:36 Lactated Ringers Solution IV 10/19/18 10:43 1,000 ml ONCE ONE Administration Ondansetron HCl 4 mg 10/19/18 10:42 10/19/18 11:37 Zofran Injection IVPUSH 10/19/18 10:43 4 mg ONCE ONE Administration <Mookie Mendosa - Last Filed: 10/19/18 13:31> *DC/Admit/Observation/Transfer <Chavez Mars - Last Filed: 10/19/18 12:01> - Discharge Dispostion Decision to Admit order: No <Mookie Mendosa - Last Filed: 10/19/18 13:31> Diagnosis at time of Disposition: Vomiting Qualifiers: Vomiting type: unspecified Vomiting Intractability: non-intractable Nausea presence: with nausea Qualified Code(s): R11.2 - Nausea with vomiting, unspecified Diarrhea Qualifiers: Diarrhea type: unspecified type Qualified Code(s): R19.7 - Diarrhea, unspecified - Discharge Dispostion Disposition: HOME Condition at time of disposition: Good - Referrals Referrals: Juan Miguel Montes MD [Primary Care Provider] - - Patient Instructions Printed Discharge Instructions: DI for Vomiting -- Child Additional Instructions: Take Zofran as prescribed. Drink plenty of fluids. No solid foods until tomorrow. Rest. Return to ED immediately for any abdominal pain that is persistent constant if you're feeling very sick or for any concerns. Follow-up with your primary care provider on Monday. - Post Discharge Activity Forms/Work/School Notes: Back to Work
[2018-10-19] MEDS ORDERED: LACTATED RINGERS SOLUTION 1000 ML INFUS.BAG IV ONE (10:42)
[2018-10-19] MEDS ORDERED: ONDANSETRON 4 MG/2 ML VIAL IVPUSH ONE (10:42)
[2018-10-19] MEDS ORDERED: ACETAMINOPHEN 1000 MG/100 ML VIAL (NON FORMULARY) IVPB ONE (10:44)
[2018-10-19] MEDS ORDERED: ACETAMINOPHEN INJECTION 100 ML IVPB ONE (10:55)
[2018-10-19] MEDS ORDERED: ONDANSETRON 4 MG/2 ML VIAL ONE (10:56)
[2018-10-19 11:29] LABS: BASO % 0.5 % (0-2.0); EOS % 0.2 % (0-4.5); HEMOGLOBIN 8.8 GM/dL (10.7-15.3); LYMPH % 6.7 % (8-40); MCH 24.7 pg (25.7-33.7); MCHC 32.7 g/dl (32.0-36.0); MEAN CELL VOLUME 75.4 fl (80-96); MEAN PLT VOLUME 8.7 fl (7.5-11.1); MONO % 3.7 % (3.8-10.2); NEUT % 88.9 % (42.8-82.8); PLATELET COUNT 291 K/MM3 (134-434); RBC 3.58 M/mm3 (3.60-5.2); RDW 13.9 % (11.6-15.6); WHITE BLOOD COUNT 6.1 K/mm3 (4.0-10.0)
[2018-10-19 11:51] LABS: URINE APPEARANCE SLCLOUDY; URINE BILIRUBIN NEGATIVE (<2.0 mg/dL); URINE COLOR YELLOW; URINE GLUCOSE (UA) NEGATIVE (NEGATIVE); URINE KETONE NEGATIVE (NEGATIVE); URINE LEUK ESTERASE NEGATIVE (NEGATIVE); URINE NITRITE POSITIVE (NEGATIVE); URINE PROTEIN NEGATIVE (NEGATIVE); URINE UROBILINOGEN NEGATIVE mg/dL (0.2-1.0)
[2018-10-19 11:59] LABS: ALBUMIN 3.3 g/dl (3.4-5.0); ALK PHOS 112 U/L (45-117); ANION GAP 7 MMOL/L (8-16); BILIRUBIN,TOTAL 0.9 mg/dL (0.2-1); BLOOD UREA NITROGEN 18 mg/dL (7-18); CALCIUM 8.1 mg/dL (8.5-10.1); CHLORIDE 108 mmol/L (98-107); CO2 23 mmol/L (21-32); CREATININE 0.4 mg/dL (0.55-1.3); GLUCOSE,RANDOM 94 mg/dL (74-106); POTASSIUM 4.1 mmol/L (3.5-5.1); SGOT/AST 15 U/L (15-37); SGPT/ALT 18 U/L (13-61); SODIUM 137 mmol/L (136-145); TOT PROT 6.8 g/dl (6.4-8.2)
[2018-10-19 12:55] LABS: EPI CELLS RARE /HPF (FEW); URINE MUCUS FEW
[2018-10-19 12:56] LABS: URINE BACTERIA MANY /hpf (NONE SEEN); YEAST TRACE
== END 2018-10-19 14:00 | disposition home or self-care (01) ==
LOC: JER 09:16
PROC: 3E033NZ Introduction of Analgesics, Hypnotics, Sedatives into Peripheral Vein, Percutaneous Approach (ICD-10-PCS; principal; 2018-10-19)
PROC: 3E033GC Introduction of Other Therapeutic Substance into Peripheral Vein, Percutaneous Approach (ICD-10-PCS; 2018-10-19)
DX: A08.4 Viral intestinal infection, unspecified (principal); B97.89 Other viral agents as the cause of diseases classified elsewhere; Z98.84 Bariatric surgery status
CPT/HCPCS: 36415; 80053; 81003; 81015; 84703; 85025; 87086; 87186; 87804; 99283-25; J0131

== ENCOUNTER 2019-06-29 13:16 | Emergency (ER) | payer OTHER ==
[2019-06-29 13:23] VITALS: BP 142/77; PULSE 75; TEMP 97.9; BMI 28.3
[2019-06-29] MEDS ORDERED: IBUPROFEN 400 MG TABLET (FP) PO ONE ×2 (13:34→13:40)
--- NOTE | 2019-06-29 13:43 | PDOC ---
History of Present Illness - General Chief Complaint: Injury Stated Complaint: RT ARM INJURY Time Seen by Provider: 06/29/19 13:22 History Source: Patient Exam Limitations: No Limitations (R AC pain after accidently hitting arm on door knob while working today) - History of Present Illness Is this a multiple visit Asthma Patient?: No Past History - Past Medical History Allergies/Adverse Reactions: Allergies Allergy/AdvReac Type Severity Reaction Status Date / Time No Known Drug Allergies Allergy Verified 06/29/19 13:20 Home Medications: Ambulatory Orders NK [No Known Home Medication] 06/29/19 Anemia: No Asthma: No Cancer: No Cardiac Disorders: No 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) COPD: No CHF: No Dementia: No Diabetes: No GI Disorders: No Disorders: No HTN: Yes Hypercholesterolemia: Yes Liver Disease: No Seizures: No Thyroid Disease: No - Surgical History Abdominal Surgery: Yes (gastric sleeve 09/21) Appendectomy: No Cardiac Surgery: No Cholecystectomy: Yes Lung Surgery: No Neurologic Surgery: No Orthopedic Surgery: Yes (RT KNEE ARTHROSCOPY) - Immunization History Immunization Up to Date: Yes - Psycho Social/Smoking Cessation Hx Smoking Status: No Smoking History: Never smoked Have you smoked in the past 12 months: No Number of Cigarettes Smoked Daily: 0 Hx Alcohol Use: No Drug/Substance Use Hx: No Substance Use Type: None Hx Substance Use Treatment: No *Physical Exam - Vital Signs Last Vital Signs Temp Pulse Resp BP Pulse Ox 97.9 F 75 18 142/77 99 06/29/19 13:19 06/29/19 13:19 06/29/19 13:19 06/29/19 13:19 06/29/19 13:19 - Physical Exam General Appearance: Yes: Nourished Respiratory/Chest: positive: Lungs Clear, Normal Breath Sounds Cardiovascular: positive: Regular Rhythm, Regular Rate, S1, S2 Extremity: positive: Normal Capillary Refill, Normal Inspection, Normal Range of Motion, Tender (R Antecubital region tenderness to touch, no obvious deformity, 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/5, distal pulse intact) Neurologic: positive: publicity writer II-XII NML intact, Fully Oriented, Alert, Normal Mood/ Affect, Normal Response, Motor Strength 5/5 ED Treatment Course - RADIOLOGY Radiology Studies Ordered: Category Date Time Status ELBOW-RIGHT [RAD] Stat Radiology 06/29/19 13:34 Ordered Medical Decision Making - Medical Decision Making 06/29/19 13:43 53 years old female [id number] who is currently at work presents with pain in the right AC region after accidentally walking into a doorknob while working today patient is complaining of pain in the right AC radiating to her shoulder she denies any weakness at this time 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 On examination there is tenderness in the right AC there is no obvious deformity patient has full range of motion sensation intact and there is no weakness x-ray obtained disposition pending 06/29/19 14:07 prelim xary negative for fx motrin Discharge - Discharge Information Problems reviewed: Yes Clinical Impression/Diagnosis: Contusion of elbow, right Qualifiers: Encounter type: initial encounter Qualified Code(s): S50.01XA - Contusion of right elbow, initial encounter Disposition: HOME - Admission No - Additional Discharge Information Prescription Drug Monitoring Program (I-STOP) results: I-STOP reviewed and issues identified - Follow up/Referral Referrals: Cullen Cotter DO [Staff Physician] - - Patient Discharge Instructions Patient Printed Discharge Instructions: Contusion Additional Instructions: Your xray showed no fracture please take motrin for pain you may follow up orthopedic if pain persist more than 2 weeks return to the ER If worsening symptoms occurs - Post Discharge Activity Work/Back to School Note: Back to Work
== END 2019-06-29 14:17 | disposition home or self-care (01) ==
LOC: JERFT 13:16
DX: S50.01XA Contusion of right elbow, initial encounter (principal); W22.8XXA Striking against or struck by other objects, initial encounter; Y93.89 Activity, other specified; Y92.238 Other place in hospital as the place of occurrence of the external cause; Y99.0 Civilian activity done for income or pay; I10 Essential (primary) hypertension; E78.00 Pure hypercholesterolemia, unspecified; I69.898 Other sequelae of other cerebrovascular disease; H53.8 Other visual disturbances; Z98.84 Bariatric surgery status
CPT/HCPCS: 73070-TC-RT-FY; 99281-25

== ENCOUNTER 2019-07-24 11:30 | Inpatient (IN) | payer OTHER ==
[2019-07-24] MEDS ORDERED: SODIUM CHLORIDE 2,041 ML IV ONE (12:07)
[2019-07-24] MEDS ORDERED: ACETAMINOPHEN 1000 MG/100 ML VIAL (NON FORMULARY) IVPB ONE (12:08)
[2019-07-24] MEDS ORDERED: ACETAMINOPHEN INJECTION 100 ML IVPB ONE (12:17)
[2019-07-24 12:42] LABS: BASO % 0.2 % (0-2.0); HEMATOCRIT 29.9 % (32.4-45.2); HEMOGLOBIN 9.4 GM/dL (10.7-15.3); LYMPH % 2.8 % (8-40); MCH 20.9 pg (25.7-33.7); MCHC 31.4 g/dl (32.0-36.0); MEAN CELL VOLUME 66.6 fl (80-96); MEAN PLT VOLUME 8.8 fl (7.5-11.1); MONO % 4.2 % (3.8-10.2); NEUT % 92.8 % (42.8-82.8); PLATELET COUNT 324 K/MM3 (134-434); RBC 4.49 M/mm3 (3.60-5.2); WHITE BLOOD COUNT 9.8 K/mm3 (4.0-10.0)
[2019-07-24 12:45] LABS: VENOUS PC02 37.8 mmHg (38-52); VENOUS PH 7.43 (7.31-7.41)
[2019-07-24 12:46] LABS: VENOUS PO2 < 49 mmHg (28-48)
[2019-07-24 13:13] LABS: ALBUMIN 3.8 g/dl (3.4-5.0); BILIRUBIN,TOTAL 0.7 mg/dL (0.2-1); BLOOD UREA NITROGEN 15.2 mg/dL (7-18); CREATININE 0.7 mg/dL (0.55-1.3); POTASSIUM 3.9 mmol/L (3.5-5.1); TOT PROT 7.8 g/dl (6.4-8.2)
--- NOTE | 2019-07-24 13:20 | PDOC ---
History of Present Illness - General Chief Complaint: Weakness Stated Complaint: TIRED Time Seen by Provider: 07/24/19 12:07 History Source: Patient - History of Present Illness Initial Comments: Ms. Hooks is a 53 y/o F with a pmhx of HTN, resolved s/p gastric sleeve sx in 2017, who presents complaining of 1 day of generalized weakness, feeling feverish, decreased appetite, chills, ALONSO, and nausea. The pt reports she was feeling in her usual state of health until this morning when she woke up feeling like this. 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 She states she had her flu shot yesterday but that was the only new exposure she's had. She says she didn't try taking anything and she hasn't noted anything makes her sx better or worse. She denies any cough, vomiting, abdominal pain, CP, SOB, constipation, diarrhea, or dysuria. 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) COPD: No CHF: No Dementia: No Diabetes: No GI Disorders: No Disorders: No HTN: Yes (says it's resolved s/p gastric sleeve sx) Hypercholesterolemia: Yes Liver Disease: No Seizures: No Thyroid Disease: No - Surgical History Abdominal Surgery: Yes (gastric sleeve 09/21) Appendectomy: No Cardiac Surgery: No Cholecystectomy: Yes Lung Surgery: No Neurologic Surgery: No Orthopedic Surgery: Yes (RT KNEE ARTHROSCOPY) - Family Medical History Family Hx Respiratory Disorders: Mother (asthma) Family Hx Gastrointestinal Disorder: Father (Liver cancer) - Immunization History Immunization Up to Date: Yes - Psycho Social/Smoking Cessation Hx Smoking Status: No Smoking History: Never smoked Have you smoked in the past 12 months: No Number of Cigarettes Smoked Daily: 0 Hx Alcohol Use: No Drug/Substance Use Hx: No Substance Use Type: None Hx Substance Use Treatment: No Review of Systems - Review of Systems Able to Perform ROS?: Yes Constitutional: Yes: Chills, Fever, Loss of Appetite, Malaise, Weakness HEENTM: No: Symptoms Reported, See HPI, Eye Pain, Blurred Vision, Tearing, Recent change in vision, Double Vision, Cataracts, Ear Pain, Ocular Prothesis, Ear Discharge, Nose Pain, Nose Congestion, Tinnitus, Nose Bleeding, Hearing Loss , Throat Pain, Throat Swelling, Mouth Pain, Dental Problems, Difficulty Swallowing, Mouth Swelling, Other Respiratory: No: Symptoms reported, See HPI, Cough, Orthopnea, Shortness of Breath, SOB with Exertion, SOB at Rest, Stridor, Wheezing, Productive cough, Hemoptysis, Other Cardiac (ROS): No: Symptoms Reported, See HPI, Chest Pain, Edema, Irregular Heart Rate, Lightheadedness, Palpitations, Syncope, Chest Tightness, Other ABD/GI: Yes: Nausea. No: Symptoms Reported, See HPI, Abdominal Distended, Abd. Pain w/ defecation, Blood Streaked Bowels, Constipated, Diarrhea, Difficulty Swallowing, Poor Appetite, Poor Fluid Intake, Rectal Bleeding, Vomiting, Indigestion, Abdominal cramping, Tarry Stools, Other : No: Symptoms Reported, See HPI, Burning, Dysuria, Discharge, Frequency, Flank Pain, Hematuria, Incontinence, Pain, Urgency, Testicular Mass, Testicular Swelling, Lesions, Testicular Pain, Other Musculoskeletal: Yes: Muscle Weakness. No: Symptoms Reported, See HPI, Back Pain, Gout, Joint Pain, Joint Swelling, Muscle Pain, Neck Pain, Joint Stiffness , Other Integumentary: No: Symptoms Reported, See HPI, Bruising, Change in Color, Change in Hair/Nails, Dryness, Erythema, Flushing, Lesions, Lumps, Pallor, Pruritus, Rash, Sweating, Other Neurological: No: Symptoms reported, See HPI, Headache, Numbness, Paresthesia, Pre-Existing Deficit, Seizure, Tingling, Tremors, Weakness, Unsteady Gait, Ataxia, Dizziness, Other Psychiatric: No: Anxiety, Depression, Frequent Crying, Stressors, Sleep Pattern Change, Emotional Problems, Mood Swings, Change in Appetite, Other Endocrine: No: Symptoms Reported, See HPI, Excessive Sweating, Flushing, Intolerance to Cold, Intolerance to Heat, Increased Hunger, Increased Thirst, Increased Urine, Unexplained Weight Gain, Unexplained Weight Loss, Change in Weight, Other *Physical Exam - Vital Signs Last Vital Signs Temp Pulse Resp BP Pulse Ox 103 F H 112 H 18 131/84 100 07/24/19 11:35 07/24/19 12:10 07/24/19 11:35 07/24/19 11:35 07/24/19 12:20 - Physical Exam General Appearance: Yes: Appropriately Dressed. No: Apparent Distress HEENT: positive: EOMI, PARRISH, Normal ENT Inspection, Normal Voice, Pharynx Normal. negative: Sinus Tenderness Neck: positive: Trachea midline, Supple. negative: Tender Respiratory/Chest: positive: Lungs Clear, Normal Breath Sounds. negative: Accessory Muscle Use, Crackles, Wheezing Cardiovascular: positive: Regular Rhythm, Tachycardia, Systolic Murmur. negative: Edema, JVD Gastrointestinal/Abdominal: positive: Normal Bowel Sounds, Soft. negative: Tender, Hepatomegaly, Spleenomegaly Musculoskeletal: positive: Normal Inspection. negative: CVA Tenderness Extremity: positive: Normal Inspection, Normal Range of Motion. 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 NML intact, Fully Oriented, Alert, Normal Mood/ Affect, Normal Response, Motor Strength / ED Treatment Course - LABORATORY CBC & Chemistry Diagram: 07/24/19 12:20 07/24/19 12:20 - ADDITIONAL ORDERS Additional order review: Laboratory Results 07/24/19 07/24/19 12:30 12:30 VBG pH 7.43 H POC VBG pCO2 37.8 L POC VBG pO2 < 49 H VBG HCO3 24.4 VBG O2 Sat ([place]) 75.4 VBG Base Excess 0.6 Lactic Acid 1.1 07/24/19 12:20 RBC 4.49 MCV 66.6 L MCHC 31.4 L RDW 18.0 H MPV 8.8 Neutrophils % 92.8 H Lymphocytes % 2.8 L D Monocytes % 4.2 Eosinophils % 0.0 D Basophils % 0.2 - Medications Given in the ED: ED Medications Discontinued Medications Generic Name Dose Route Start Last Admin Trade Name Freq PRN Reason Stop Dose Admin Acetaminophen 1,000 mg 07/24/19 12:08 07/24/19 12:20 Ofirmev Injection - IVPB 07/24/19 12:09 1,000 mg ONCE ONE Administration Medical Decision Making - Medical Decision Making Ms. Hooks is a 53F with pmhx HTN, resolved s/p gastric sleeve sx in 09/2017, presenting with 1 days of generalized weakness and fever. Pt found to be tachycardis to the 120s, and febrile to 103 on physical exam. DDx includes viral syndrome, vs. bacterial infection. Will obtain: CBC CMP CXR Rapid flu swab A/B EKG UA Repeat vital signs 07/24/19 13:34 07/24/19 13:40 Pt received 1000mg IVPB Ofirmev 1 L NS bolus 07/24/19 14:07 ECG: Vent. Rate: 111 bpm IN interval 188 ms QRS duration: 80 ms QT/QTc : 310/421 ms P-R-T axes 58 21 126 Sinus Tachycardia Nonspecific T wave abnormality Abnormal ECG Pt states she feels dizzy, BP supine 116/75 HR 110, sitting 101/67 HR 102 - will admin second L of fluids and reassess 07/24/19 14:41 - UA negative - CXR without signs of acute pathology - Influenza A/B negative - will reassess vitals after second L of fluids finishes running 07/24/19 17:03 After 2L of fluids pt BP still decreasing, now at 98/59, spoke to Dr. Goddard about admitting patient for further w/u of fever of unknown origin and hypotension. Discharge - Discharge Information Problems reviewed: Yes Clinical Impression/Diagnosis: Fever, unknown origin Hypotension Qualifiers: Hypotension type: unspecified hypotension type Qualified Code(s): I95.9 - Hypotension, unspecified Condition: Stable - Admission Yes - Follow up/Referral - Patient Discharge Instructions - Post Discharge Activity
--- NOTE | 2019-07-24 13:46 | PDOC ---
Documentation entered by Yovana Hernandez SCRIBE, acting as scribe for Fernando Luna MD. Fernando Luna MD: This documentation has been prepared by the sidraeDavid Maria, SCRIBE, under my direction and personally reviewed by me in its entirety. I confirm that the documentation accurately reflects all work, treatment, procedures, and medical decision making performed by me. Attending Attestation - Resident Resident Name: Elvie Licea - ED Attending Attestation I have performed the following: I have examined & evaluated the patient, The case was reviewed & discussed with the resident, I agree w/resident's findings & plan - HPI HPI: 07/24/19 13:31 Patient is a 53 year old female with no significant past medical history who presents to the Emergency Department with 1 day of nausea and headache. She also notes associated subjective fever and chills prompting her arrival to the Emergency Department. Patient states she received her flu shot yesterday. She denies cough or abdominal pain. She denies recent headache or dizziness. She denies recent nausea, vomit, diarrhea or constipation. She denies recent dysuria, frequency, urgency or hematuria. She denies recent chest pain or shortness of breath. Allergies: NKA Past surgical history: Vertical sleeve gastrectomy Social history: Nonsmoker. Denies EtOH use and recreational drug use. 07/24/19 13:43 - Physicial Exam PE: 07/24/19 13:44 Patient is awake and alert, well-nourished, in no distress Normocephalic and atraumatic PERRLA, EOMI, no photophobia Neck is supple; oropharynx is clear CTA RRR Abdomen is soft, nontender, nondistended No lower extremity edema or rash No focal neurological deficits - Medical Decision Making 07/24/19 13:45 Patient is a 53-year-old female who presents with flulike symptoms for the past 24 hours, associated with headache, shaking chills, generalized weakness and malaise. In the ER, patient is awake and alert, tachycardic and febrile without evidence of meningismus. Lungs are clear and abdomen is soft to palpation. There is no rash and no focal neurological deficits are appreciated. Will obtain CBC/CMP/lactate/UA/influenza swab/blood cultures/ urine culture. Will obtain chest x-ray to rule out pneumonia. Will hydrate and will administer antipyretics. Will reassess. Heart Score/ECG Review - ECG Intrepretation Comment:: 07/24/19 13:04 EKG performed : July-2019 at 12:37:17 Vent. Rate: 111 bpm [place] interval 188 ms QRS duration: 80 ms QT/QTc : 310/421 ms P-R-T axes 58 21 126 Sinus Tachycardia Nonspecific T wave abnormality Abnormal ECG
[2019-07-24 13:57] LABS: PH,URINE 6.5 (5.0-8.0); URINE APPEARANCE CLEAR; URINE BILIRUBIN NEGATIVE (NEGATIVE); URINE COLOR YELLOW; URINE GLUCOSE (UA) NEGATIVE (NEGATIVE); URINE KETONE NEGATIVE (NEGATIVE); URINE LEUK ESTERASE NEGATIVE (NEGATIVE); URINE NITRITE NEGATIVE (NEGATIVE); URINE PROTEIN NEGATIVE (NEGATIVE); URINE UROBILINOGEN 0.2 mg/dL (0.2-1.0)
[2019-07-24 13:57] LABS: ANISOCYTOSIS 1+; MACROCYTOSIS 0; PLATELET ESTIMATE NORMAL; TEAR DROP CELLS 1+
--- NOTE | 2019-07-24 15:19 | EKG ---
Test Reason : Blood Pressure : / mmHG Vent. Rate : 111 BPM Atrial Rate : 111 BPM P-R Int : 188 ms QRS Dur : 080 ms QT Int : 310 ms P-R-T Axes : 058 021 126 degrees QTc Int : 421 ms SINUS TACHYCARDIA NONSPECIFIC T WAVE ABNORMALITY ABNORMAL ECG WHEN COMPARED WITH ECG OF 29-MAY-2017 11:29, VENT. RATE HAS INCREASED BY 52 BPM NONSPECIFIC T WAVE ABNORMALITY NOW EVIDENT IN INFERIOR LEADS T WAVE INVERSION NOW EVIDENT IN LATERAL LEADS Confirmed by AVRIL SHELL MD ([id number]) on 07/24/2019 3:19:21 PM Referred By: Confirmed By:AVRIL SHELL MD
[2019-07-24] MEDS ORDERED: CEFTRIAXONE 1 GM in DEXTROSE 5%-WATER - 100 ML IVPB ONE (16:08)
[2019-07-24] MEDS ORDERED: CEFTRIAXONE 1 GM/50 ML BAG ONE (16:13)
[2019-07-24] MEDS ORDERED: SODIUM CHLORIDE 1,000 ML IV SCH (16:15)
[2019-07-24] MEDS ORDERED: ACETAMINOPHEN 325 MG TABLET (FP) PO PRN (17:06)
[2019-07-24 17:51] VITALS: BMI 29.7
[2019-07-24] MEDS: SODIUM CHLORIDE 0.9%/KCL 20 MEQ/1,000 ML INFUS.BAG IV SCH (19:54)
[2019-07-25] MEDS: SODIUM CHLORIDE 0.9%/KCL 20 MEQ/1,000 ML INFUS.BAG IV SCH ×2 (06:24→19:04)
[2019-07-25] MEDS ORDERED: CEFTRIAXONE 1,000 MG in DEXTROSE 5%-WATER - 50 ML IVPB SCH (08:00)
[2019-07-25 09:30] LABS: BASO % 0.2 % (0-2.0); EOS % 0.1 % (0-4.5); HEMATOCRIT 25.6 % (32.4-45.2); MCH 21.2 pg (25.7-33.7); MCHC 31.2 g/dl (32.0-36.0); MEAN CELL VOLUME 67.9 fl (80-96); MEAN PLT VOLUME 8.9 fl (7.5-11.1); MONO % 5.1 % (3.8-10.2); NEUT % 84.6 % (42.8-82.8); PLATELET COUNT 265 K/MM3 (134-434); RBC 3.77 M/mm3 (3.60-5.2); RDW 18.4 % (11.6-15.6); WHITE BLOOD COUNT 8.1 K/mm3 (4.0-10.0)
[2019-07-25] MEDS ORDERED: DEXTROSE 5%-WATER - 50 ML IVPB ONE (09:46)
[2019-07-25] MEDS ORDERED: cefTRIAXone SODIUM 1 GM VIAL ONE (09:46)
[2019-07-25] MEDS: CEFTRIAXONE 1 GM in DEXTROSE 5%-WATER - 50 ML IVPB SCH (09:58)
[2019-07-25 10:11] LABS: ALBUMIN 3.1 g/dl (3.4-5.0); BILIRUBIN,TOTAL 0.6 mg/dL (0.2-1); BLOOD UREA NITROGEN 11.8 mg/dL (7-18); CALCIUM 8.5 mg/dL (8.5-10.1); CREATININE 0.7 mg/dL (0.55-1.3); TOT PROT 6.7 g/dl (6.4-8.2)
--- NOTE | 2019-07-25 16:52 | HP ---
Admitting History and Physical - Primary Care Physician PCP: Rudy Sanders - Admission Chief Complaint: fever History of Present Illness: ER history-- - HPI HPI: 07/24/19 13:31 Patient is a 53 year old female with no significant past medical history who presents to the Emergency Department with 1 day of nausea and headache. She also notes associated subjective fever and chills prompting her arrival to the Emergency Department. Patient states she received her flu shot yesterday. She denies cough or abdominal pain. She denies recent headache or dizziness. She denies recent nausea, vomit, diarrhea or constipation. She denies recent dysuria, frequency, urgency or hematuria. She denies recent chest pain or shortness of breath. 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 found to have 103F here in ER - received ceftriaxone influenza negative History Source: Patient Limitations to Obtaining History: No Limitations - Past Medical History ...LMP: 08/07/17 - Smoking History Smoking history: Never smoked Have you smoked in the past 12 months: No Aproximately how many cigarettes per day: 0 - Alcohol/Substance Use Hx Alcohol Use: No Home Medications - Allergies Allergies/Adverse Reactions: Allergies Allergy/AdvReac Type Severity Reaction Status Date / Time No Known Drug Allergies Allergy Verified 07/24/19 11:39 - Home Medications Home Medications: Ambulatory Orders NK [No Known Home Medication] 06/29/19 Review of Systems - Review of Systems Constitutional: reports: Fever. denies: Chills Respiratory: denies: Cough Gastrointestinal: reports: Diarrhea. denies: Abdominal Pain Physical Examination Vital Signs: Vital Signs Temperature 98.6 F 07/25/19 13:34 Pulse Rate 84 07/25/19 13:34 Respiratory Rate 20 07/25/19 13:34 Blood Pressure 126/62 07/25/19 13:34 O2 Sat by Pulse Oximetry (%) 99 07/25/19 09:00 Constitutional: Yes: No Distress, Calm Cardiovascular: Yes: Regular Rate and Rhythm Respiratory: Yes: CTA Bilaterally Gastrointestinal: Yes: Normal Bowel Sounds, Soft. No: Tenderness ...Rectal Exam: Yes: Deferred Renal/: Yes: WNL Extremities: Yes: WNL Edema: No Peripheral Pulses WNL: Yes Integumentary: Yes: WNL. No: Rash Neurological: Yes: WNL ...Motor Strength: WNL Psychiatric: Yes: WNL Labs: CBC, BMP 07/25/19 08:45 07/25/19 06:00 Imaging - Results Chest X-ray: Image Reviewed (clear) EKG: Image Reviewed (sinus tachycardia) Problem List - Problems (1) Fever, unknown origin Code(s): R50.9 - FEVER, UNSPECIFIED (2) Viral syndrome Code(s): B34.9 - VIRAL INFECTION, UNSPECIFIED (3) Hypotension Code(s): I95.9 - HYPOTENSION, UNSPECIFIED Qualifiers: Hypotension type: unspecified hypotension type Qualified Code(s): I95.9 - Hypotension, unspecified Assessment/Plan PLAN empiric antibiotics IV fluids x 2 days Tylenol prn cultures pending if cultures negative, may dc Ceftriaxone
[2019-07-26] MEDS ORDERED: cefTRIAXone SODIUM 1 GM VIAL ONE (08:37)
[2019-07-26] MEDS ORDERED: DEXTROSE 5%-WATER - 50 ML IVPB ONE (08:37)
[2019-07-26] MEDS: CEFTRIAXONE 1 GM in DEXTROSE 5%-WATER - 50 ML IVPB SCH (08:54)
[2019-07-26 13:24] VITALS: BP 118/73; PULSE 74; TEMP 98.2
[2019-07-26] MEDS ORDERED: valACYclovir HCL 1000 MG TABLET PO ONE (13:57)
--- NOTE | 2019-07-26 14:02 | DS ---
Physical Examination Vital Signs: Vital Signs Temperature 98.2 F 07/26/19 13:22 Pulse Rate 74 07/26/19 13:22 Respiratory Rate 20 07/26/19 13:22 Blood Pressure 118/73 07/26/19 13:22 O2 Sat by Pulse Oximetry (%) 99 07/25/19 22:00 Findings/Remarks: feels well No complains except sore on right lower lip-- consistant with herpes denies cp/sob/abd pain Denies Headache/ dizziness wants to go home Constitutional: Yes: No Distress, Calm Eyes: Yes: Conjunctiva Clear HENT: Yes: WNL, Other (right lower lip- Cold sore) Cardiovascular: Yes: Regular Rate and Rhythm Respiratory: Yes: CTA Bilaterally Gastrointestinal: Yes: Soft Extremities: Yes: WNL Edema: No Peripheral Pulses WNL: Yes Neurological: Yes: Alert Psychiatric: Yes: Alert Labs: CBC, BMP 07/25/19 08:45 07/25/19 06:00 Discharge Summary Problems reviewed: Yes Reason For Visit: FEVER OF UNKNOWN ORIGIN Current Active Problems Fever, unknown origin (Acute) Hypotension (Acute) Viral syndrome (Acute) Hospital Course: admitted for fever Treated with Emperic abx cultures -ve so far [facility] viral Labs also show Anemia Pt says she knows about it Says had colonosocpy done also this year - Dr. Mendoza and was ok' todays labs discussed - drop in h/h Pt understands Denies bleeding wants to go home and says will follow with her pmd Dr. Mensah will d/c off abx and follow cultures Start on RX for Cold sore d/w RN also Condition: Stable - Instructions Disposition: HOME - Home Medications Comprehensive Discharge Medication List: Ambulatory Orders Acetaminophen [Tylenol .Regular Strength -] 650 mg PO Q6H PRN tablet 07/26/19 Valacyclovir HCl [Valtrex -] 2,000 mg PO ONCE #1 tablet 07/26/19
[2019-07-26] MEDS ORDERED: valACYclovir HCL 500 MG TABLET (FP) PO ONE (15:00)
--- NOTE | 2019-07-26 15:09 | PN ---
Progress Note (short form) - Note Progress Note: Pt under my care at [facility]. Admitted 07/24/19 Can join duty as of 07/27/19 No restrictions
== END 2019-07-26 15:46 | disposition home or self-care (01) | DRG 866 ==
LOC: JER 11:30 → JERBED 16:55 → J6S 17:31
PROVIDERS: ADMIT Internal Medicine; ATTEND Internal Medicine
DX: B34.9 Viral infection, unspecified (principal); R50.9 Fever, unspecified; I95.9 Hypotension, unspecified; D64.9 Anemia, unspecified
CPT/HCPCS: 36415; 71045-TC-FY; 80053; 81003; 82803; 83605; 84484; 85025; 87040; 87086; 87804; 93005; 93010; 99285-25; J0131; J7030

== ENCOUNTER 2022-05-12 07:52 | Emergency (ER) | payer OTHER ==
[2022-05-12 08:17] VITALS: BP 151/91; PULSE 64; RESP 20; TEMP 98; BMI 31.4
[2022-05-12] MEDS ORDERED: KETOROLAC TROMETHAMINE 30 MG/1 ML VIAL IM ONE (09:02)
[2022-05-12] MEDS ORDERED: KETOROLAC TROMETHAMINE 30 MG/1 ML VIAL ONE (09:13)
== END 2022-05-12 09:36 | disposition home or self-care (01) ==
LOC: FER 07:52
PROC: 3E0233Z Introduction of Anti-inflammatory into Muscle, Percutaneous Approach (ICD-10-PCS; principal; 2022-05-12)
DX: M72.2 Plantar fascial fibromatosis (principal)
CPT/HCPCS: 73610-TC-RT-FY; 73630-TC-RT-FY; 82962; 99284-25

== ENCOUNTER 2023-02-12 08:04 | Emergency (ER) | payer OTHER ==
[2023-02-12 08:13] VITALS: BP 115/73; PULSE 107; RESP 18; TEMP 97.9; BMI 28.7
[2023-02-12] MEDS ORDERED: HYDROCORTISONE 1% TOPICAL CREAM 30 GM TUBE TP PRN (08:47)
[2023-02-12] MEDS ORDERED: MUPIROCIN 2% TOPICAL OINTMENT 22 GM TUBE TP SCH (14:00)
== END 2023-02-12 09:06 | disposition home or self-care (01) ==
LOC: JER 08:04
DX: R21 Rash and other nonspecific skin eruption (principal); L01.00 Impetigo, unspecified; L25.9 Unspecified contact dermatitis, unspecified cause
CPT/HCPCS: 99283-25

== ENCOUNTER 2023-02-28 03:46 | Emergency (ER) | payer OTHER ==
[2023-02-28 03:58] VITALS: BP 131/89; PULSE 65; RESP 16; TEMP 98.4; BMI 28.5
[2023-02-28] MEDS ORDERED: KETOROLAC TROMETHAMINE 60 MG/2 ML VIAL IM ONE (04:08)
[2023-02-28] MEDS ORDERED: KETOROLAC TROMETHAMINE 30 MG/1 ML VIAL ONE (04:08)
== END 2023-02-28 04:41 | disposition home or self-care (01) ==
LOC: FER 03:46
PROC: 3E0233Z Introduction of Anti-inflammatory into Muscle, Percutaneous Approach (ICD-10-PCS; principal; 2023-02-28)
DX: M54.50 Low back pain, unspecified (principal)
CPT/HCPCS: 99284-25

== ENCOUNTER 2024-03-19 13:29 | Emergency (ER) | payer OTHER ==
[2024-03-19 13:43] VITALS: BP 164/90; PULSE 65; RESP 20; TEMP 98.4; BMI 30.4
[2024-03-19] MEDS: KETOROLAC TROMETHAMINE 30 MG/1 ML VIAL IM ONE (15:21)
[2024-03-19] MEDS ORDERED: KETOROLAC TROMETHAMINE 30 MG/1 ML VIAL ONE (15:22)
== END 2024-03-19 15:39 | disposition home or self-care (01) ==
LOC: FER 13:29
PROC: 3E0133Z Introduction of Anti-inflammatory into Subcutaneous Tissue, Percutaneous Approach (ICD-10-PCS; principal; 2024-03-19)
DX: S99.912A Unspecified injury of left ankle, initial encounter (principal); W22.8XXA Striking against or struck by other objects, initial encounter; Y93.01 Activity, walking, marching and hiking; Y92.410 Unspecified street and highway as the place of occurrence of the external cause
CPT/HCPCS: 73610-TC-LT-FY; 73630-TC-LT; 99284-25